=== PATIENT | male | born 1965 | race Caucasian/White ===

== ENCOUNTER 2022-02-20 11:48 | Outpatient (CLI) | payer OTHER, SELFPAY ==
--- NOTE | ~2022-02-20 | CT_ITS ---
EXAMINATION: CT lung screening DATE: 02/20/2022 12:37 INDICATION: Chest complaints. History of tobacco dependence. Lung cancer screening. TECHNIQUE: Computed tomography (CT) of the chest was performed without intravenous contrast. The dose -length product was 229.35 mGy-cm. Automated exposure control and iterative reconstruction technique were employed. COMPARISON: None FINDINGS: There is mild emphysema. No endobronchial lesions. No pneumothorax. Small hiatal hernia. Th ere is debris in the distal aspect of the esophagus, possibly reflux. No thoracic lymphadenopathy. Th ere is a 3 cm liver cyst. Otherwise, the upper abdomen is unremarkable. There is a 4 mm right upper l obe nodule, image 48. There is a 3 mm right upper lobe nodule, image 40. No peripheral airspace conso lidation. Mild thoracic spondylosis. No lytic or blastic lesions. IMPRESSION: 1. Lung-RADS category 2: Benign appearance or behavior. Continue annual screening with noncontrast lo w-dose chest CT in 12 months. Reviewed, dictated and finalized at location B. IMPRESSION: 1. Lung-RADS category 2: Benign appearance or behavior. Continue annual screeni ng with noncontrast low-dose chest CT in 12 months.
== END 2022-02-20 11:49 | disposition home or self-care (01) ==
DX: Z12.2 Encounter for screening for malignant neoplasm of respiratory organs (principal); Z87.891 Personal history of nicotine dependence
CPT/HCPCS: 71271

== ENCOUNTER 2022-08-29 09:05 | Outpatient (CLI) | payer OTHER, SELFPAY ==
--- NOTE | ~2022-08-29 | MR_ITS ---
EXAMINATION: MR knee RT wo con DATE: 08/29/2022 09:53 INDICATION: Chronic anterior right knee pain TECHNIQUE: Magnetic resonance imaging (MRI) of the right knee was performed without intravenous contr ast. Sequences included axial PD-weighted FS FSE, coronal PD-weighted FSE and PD-weighted FS FSE, sag ittal PD-weighted FSE, and sagittal T2-weighted FS FSE. COMPARISON: None. FINDINGS: Medial compartment: Oblique undersurface tear of the posterior horn and body. Mild diffuse cartilage loss. Mild osteophyt osis. Lateral compartment: Intact meniscus. Mild diffuse cartilage loss. Mild osteophytosis. Patellofemoral compartment: Mild diffuse cartilage thinning. Likely full-thickness cartilage fissure along the lateral facet with a subjacent subchondral cyst. Retinacula intact. Ligaments and tendons: ACL, PCL, MCL, and LCL are intact. The remaining flexor and extensor tendons are intact. Fluid: No effusion. Osseous/other: No suspicious focal or diffuse marrow signal. IMPRESSION: 1. Oblique undersurface tear of the body/posterior horn, medial meniscus. 2. Mild tricompartmental osteoarthritic change. Reviewed, dictated and finalized at location K.
== END 2022-08-29 09:06 | disposition home or self-care (01) ==
PROVIDERS: PCP Orthopaedic Surgery
DX: M25.561 Pain in right knee (principal); S83.241A Other tear of medial meniscus, current injury, right knee, initial encounter; M17.11 Unilateral primary osteoarthritis, right knee
CPT/HCPCS: 73721

== ENCOUNTER 2022-09-12 09:04 | Outpatient (CLI) | payer OTHER, SELFPAY ==
--- NOTE | ~2022-09-12 | MR_ITS ---
EXAMINATION: MR knee LT wo con DATE: 09/12/2022 09:57 INDICATION: Chronic left knee pain TECHNIQUE: Magnetic resonance imaging (MRI) of the left knee was performed without intravenous contra st. Sequences included coronal PD-weighted FSE, coronal PD-weighted FS FSE, sagittal T2-weighted FSE , sagittal PD-weighted FS FSE and axial PD weighted fat saturated FSE. COMPARISON: None. FINDINGS: Medial compartment: Complex tear involving the body and posterior horn of the medial meniscus. Mild partial-thickness car tilage loss with smooth chondral surface and without degenerative subchondral changes along the media l tibial plateau and weightbearing medial femoral condyle. Lateral compartment: Lateral meniscus is normal. Articular cartilage is normal. Patellofemoral compartment: Small regions of partial-thickness chondral fissuring without degenerative subchondral changes at the medial patellar facet and with minimal underlying cortical irregularity and edema-like signal change at the superolateral aspect of the lateral patellar facet. Trochlear cartilage is normal. Ligaments and tendons: Anterior and posterior cruciate ligaments are normal. The medial collateral ligament and fibular shelli ateral ligament complex are normal. Small enthesophytes and mild tendinopathy at the distal quadricep s tendon. Patellar tendon is normal. The visualized medial and lateral hamstring tendons as well as t he iliotibial band are normal. Fluid: Physiologic amount of fluid in the joint space. No loose osteochondral bodies identified. Osseous/other: No fracture or pathologic marrow replacing process. IMPRESSION: 1. Complex medial meniscal tear. 2. Mild osteoarthritis in the medial and patellofemoral compartments. 3. Mild distal quadriceps tendinopathy. Reviewed, dictated and finalized at location A.
== END 2022-09-12 09:05 | disposition home or self-care (01) ==
DX: M25.562 Pain in left knee (principal); M25.561 Pain in right knee; S83.232A Complex tear of medial meniscus, current injury, left knee, initial encounter; M17.12 Unilateral primary osteoarthritis, left knee; S76.112A Strain of left quadriceps muscle, fascia and tendon, initial encounter
CPT/HCPCS: 73721

== ENCOUNTER 2023-10-15 08:55 | Outpatient (CLI) | payer OTHER, SELFPAY ==
--- NOTE | ~2023-10-15 | CT_ITS ---
CT Scan of the Chest without Contrast: Clinical Indication: Lung cancer screening, nicotine dependence Technique: Contiguous sections were acquired throughout the chest without intravenous contrast. Dose reduction technique was used on this scan by utilizing automated exposure control and iterative recon struction technique. The dose-length product (DLP) was 195.30 mGy-cm. COMPARISON: 02/20/2022 Findings: There is no evidence of any significant mediastinal, hilar or axillary lymphadenopathy. The mediastin al soft tissues appear normal. There is no evidence of pleural or pericardial effusion. 4 mm right upper lobe pulmonary nodule present, unchanged (axial image 44). Images through the upper abdomen reveal no abnormalities. Impression: Lung RADS 2: Benign appearance. 12 month follow-up screening CT advised. Reviewed, dictated and finalized at location . Impression: Lung RADS 2: Benign appearance. 12 month follow-up screening CT advised.
== END 2023-10-15 08:56 | disposition home or self-care (01) ==
LOC: CHSIMG 08:57
DX: Z12.2 Encounter for screening for malignant neoplasm of respiratory organs (principal); Z87.891 Personal history of nicotine dependence
CPT/HCPCS: 71271

== ENCOUNTER 2024-05-01 07:24 | Outpatient (CLI) | payer OTHER, SELFPAY ==
--- NOTE | ~2024-05-01 | US_ITS ---
EXAMINATION: US carotid duplex BI DATE: 05/01/2024 08:17 INDICATION: Occlusion and stenosis of the bilateral carotid arteries TECHNIQUE: Grayscale, color Doppler, and pulsed Doppler images of the cervical carotid arteries were obtained. The degree of vessel stenosis is placed in one of the following categories: normal, <50%, 5 0-69%, >=70% but less than near-occlusion, near-occlusion, or total occlusion. Note that percent sten osis relative to normal distal artery lumen diameter is indirectly measured from velocity measurement s as described by Kenny, et al. Radiology 2003; 229:340-346. COMPARISON: None. FINDINGS: RIGHT: The right common carotid artery (CCA) peak systolic velocity (PSV) is 118 cm/s. The right internal ca rotid artery (ICA) PSV is 80 cm/s. The right ICA end-diastolic velocity (EDV) is 37 cm/s. The right I CA/CCA PSV ratio is 0.7. Grayscale and color Doppler images yield an estimate of <50% diameter reduct ion from plaque in the ICA. The external carotid artery (ECA) PSV is 87 cm/s. There is antegrade flow in the right vertebral artery. LEFT: The left CCA PSV is 76 cm/s. The left ICA PSV is 97 cm/s. The left ICA EDV is 43 cm/s. The left ICA/C CA PSV ratio is 1.3. Grayscale and color Doppler images yield an estimate of <50% diameter reduction from plaque in the ICA. The ECA PSV is 48 cm/s. There is antegrade flow in the left vertebral artery. IMPRESSION: 1. <50% stenosis in the right internal carotid artery. 2. <50% stenosis in the left internal carotid artery. Reviewed, dictated and finalized at location A. POT MAN
--- NOTE | ~2024-05-01 | US_ITS ---
Abdominal Sonogram: Real-time sonographic imaging of the abdomen was performed. Clinical History: Abdominal bulge Findings: The liver appears normal with no evidence of solid mass lesion or bile duct dilatation. Ma in portal vein demonstrates normal direction of flow. Hepatic cysts are present, largest measuring 3 cm in diameter. The spleen is normal in size without evidence of focal lesion. The gallbladder is we ll distended, and appears normal with no evidence of gallstone or wall thickening. The common bile du ct measures 3 mm. The visualized pancreas, aorta, and IVC are unremarkable. The right kidney measur es 11.2 cm in length and the left kidney measures 11.0 cm. There is no hydronephrosis or renal calcu ike. Impression: No significant abnormality. Reviewed, dictated and finalized at [facility]. ENGRAVER Impression: No significant abnormality.
== END 2024-05-01 07:25 | disposition home or self-care (01) ==
DX: I65.23 Occlusion and stenosis of bilateral carotid arteries (principal); R14.0 Abdominal distension (gaseous)
CPT/HCPCS: 76700; 93880

== ENCOUNTER 2024-06-16 08:35 | Outpatient (CLI) | payer OTHER, SELFPAY ==
--- NOTE | ~2024-06-16 | CT_ITS ---
EXAMINATION: CT soft tissue neck wo/w con DATE: 06/16/2024 09:16 INDICATION: Right clavicular mass. Dysphagia. TECHNIQUE: Computed tomography (CT) of the neck was performed without and with 75 mL Omnipaque-350 in travenous contrast. Automated exposure control and iterative reconstruction technique were employed. The dose-length product was 1025.32 mGy-cm. COMPARISON: Chest CT 10/15/2023 FINDINGS: There is mild emphysema. There is mucosal thickening in the paranasal sinuses. There is jossy que in the proximal internal carotid arteries with less than 50% stenosis relative to normal distal a rtery lumen diameters. There is a 1.3 x 1.1 cm submandibular lymph node at the midline. There is a 2. 0 x 1.6 cm right supraclavicular node. There is extensive dental disease. There is severe cervical sp ondylosis. 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 IMPRESSION: 1. Cervical lymphadenopathy suspicious for metastatic disease. Ultrasound-guided core needle biopsy o f a right supraclavicular lymph node is recommended. 2. Extensive dental disease. Reviewed, dictated and finalized at location B. BOARD PANEL PRINTER IMPRESSION: 1. Cervical lymphadenopathy suspicious for metastatic disease. Ultrasound-guide d core needle biopsy of a right supraclavicular lymph node is recommended. 2. Extensive dental disease.
== END 2024-06-16 08:36 | disposition home or self-care (01) ==
LOC: CHSIMG 08:39
DX: R59.0 Localized enlarged lymph nodes (principal); K08.9 Disorder of teeth and supporting structures, unspecified
CPT/HCPCS: 70492; Q9967

== ENCOUNTER 2024-10-23 12:42 | Outpatient (CLI) | payer OTHER, SELFPAY ==
--- NOTE | ~2024-10-23 | CT_ITS ---
EXAMINATION: CT lung screening DATE: 10/23/2024 13:02 INDICATION: Personal history of nicotine dependence TECHNIQUE: Computed tomography (CT) of the chest was performed without intravenous contrast. The dose -length product was 118.71 mGy-cm. Automated exposure control and iterative reconstruction technique were employed. COMPARISON: CT dated 10/15/2023 FINDINGS: Stable appearance of low-density mass of the liver, consistent with a cyst. No significant pleural or pericardial effusion. No thoracic lymphadenopathy. Small hiatal hernia. There is atheroscl erosis of the aorta and coronary arteries.No endobronchial lesions. Mild emphysema. Stable right uppe r lobe 4 mm nodule. No endobronchial lesions. No pneumothorax. Pulmonary nodules or masses. Mild thoracic spondylosis. IMPRESSION: 1. Lung-RADS category 2: Benign appearance or behavior. Continue annual screening with noncontrast lo w-dose chest CT in 12 months. Reviewed, dictated and finalized at location A. IMPRESSION: 1. Lung-RADS category 2: Benign appearance or behavior. Continue annual screeni ng with noncontrast low-dose chest CT in 12 months.
== END 2024-10-23 12:43 | disposition home or self-care (01) ==
LOC: CHSIMG 12:46
DX: Z12.2 Encounter for screening for malignant neoplasm of respiratory organs (principal); Z98.890 Other specified postprocedural states
CPT/HCPCS: 71271

== ENCOUNTER 2025-04-02 13:25 | Outpatient (CLI) | payer OTHER, SELFPAY ==
--- NOTE | ~2025-04-02 | CT_ITS ---
EXAM/PROCEDURE: CT soft tissue neck wo con HISTORY: FU ON RT SUPRACLAVICULAR ENLARDED LYMPHNODES COMPARISON: June 16, 2024 TECHNIQUE: Noncontrast soft tissue neck CT performed. FINDINGS: Extensive lymphadenopathy again noted with right supraclavicular lymph node measuring 2.5 cm, compared to 2.1 cm on the previous exam. Compare image 31 series 6 oh on coronal images on today's exam to image 54 of the coronal series on the previous exam.. A submental lymph node measures 1.5 cm in the transverse dimension compared to 1.2 cm on the previous exam. Compare image 71 of series 3 on today's exam to image 61 series 7 on the previous exam. Other smaller but mildly pathologic size bilateral jugulodigastric and supraclavicular lymph nodes. Smaller nonpathologic size posterior triangle and occipital lymph nodes also present. Periodontal and paranasal sinus disease again noted. IMPRESSION: Directed noncontrast exam again demonstrating lymphadenopathy, increasing in size concerning for lymphoproliferative process or malignant disease. Reviewed, dictated and finalized at location A. ASSISTANT IMPRESSION: Directed noncontrast exam again demonstrating lymphadenopathy, increasing in si ze concerning for lymphoproliferative process or malignant disease.
--- OUTSIDE RECORDS SUMMARY | 2025-04-02 13:41 | XMS_ITS | Clinical Summary ---
Author Organization [facility] Address [address] [place] [address] Care Team Providers Care Ground Hand Name Role Phone None, Provider MD Primary Care Provider Unavaila ble Allergies Active Allergy Reactions Criticality Noted Date Comments Amlodipine Swelling 10/04/2023 Food Anaphylaxis High 10/11/2023 Raisins Medications sildenafil (VIAGRA) 100 MG tablet Take 1 tablet (100 mg total) by mouth daily as needed for Erectile Dysfunction. Active atorvastatin (LIPITOR) 40 MG tablet Take 1.5 tablets (60 mg total) by mouth nightly at bedtime. Active vitamin D3, cholecalciferol , 1000 UNIT Tab tablet Take 2 tablets (50 mcg total) by mouth daily. Active DULoxetine (CYMBALTA) 60 MG capsule Take 1 capsule (60 mg total) by mouth daily. Active Active Problems Problem Noted Date Diagnosed Date Quadriceps tendonitis 07/21/2024 Tear of medial meniscus of left knee, initial en counter 07/21/2024 History of arthroscopy of right knee 07/21/2024 Chronic pain of right knee 07/21/2024 Complex tear of medial menis cus of right knee as current injury, initial encounter 09/17/2023 Social History Tobacco Use Types Packs/Day Years Used Date Smoking Tobacco: Every Day Cigarettes 1 40 Smokeless Tobacco: Never Tobacco Cessation:Ready to Q uit: Not Asked; Counseling Given: Not Answered Alcohol Use Standard Drinks/Week Comments Never 0 (1 standard drink = 0.6 oz pur e alcohol) Sex and Gender Information Value Date Recorded Sex Assigned at Male 07/21/2024 9:54 AM BUSINESS DEVELOPMENT AGENT Legal Sex Male 9:13 PM BUSINESS DEVELOPMENT AGENT Gender Identity Not on file Sexual Orientation Not on file Last Filed Vital Signs Vital Sign Reading Time Taken Comments Blood Pressure 112/76 03/27/2024 1:30 PM BUSINESS DEVELOPMENT AGENT Pulse 67 03/27/2024 1:45 PM BUSINESS DEVELOPMENT AGENT Temperature 36.9 C (98.4 F) 03/27/2024 11:01 AM BUSINESS DEVELOPMENT AGENT Respiratory Rate 16 03/27/2024 1:45 PM BUSINESS DEVELOPMENT AGENT Oxygen Saturation 95% 03/27/2024 1:45 PM BUSINESS DEVELOPMENT AGENT Inhaled Oxygen Concentration - - Weight 108 kg (238 lb) 08/14/2024 12:04 PM CDT Height 188 cm (6' 2) 08/14/2024 12:04 PM CDT Body Mass Index 30.56 08/14/2024 12:04 PM CDT Plan of Treatment Upcoming Encounters Date Type Department Care Team (Late st Contact Info) Description 04/11/2025 Orders Only [address] [address] Giancarlo Wlels, DO [address] [place] [id number] 04/11/2025 3:30 PM BUSINESS DEVELOPMENT AGENT Office Visit [address] [address] Giancarlo Wells, DO [facility] [place] [address] Health Maintenance Due Date Last Done Comments Colorectal Cancer Screening Colonoscopy (10 Years) 1967 Annual Physical 1970 Hepatitis C 1985 Hepatitis B Vaccines (1 of 3 - 19+ 3-dose series) 1986 Pneumococcal Vaccine: 50+ Ye ars (1 of 2 - PCV) 1986 Lung Cancer Screening 2017 Zoster Vaccines (1 of 2) 2017 DTaP, Tdap and Td Vaccines ( 1 - Tdap) 08/28/2023 08/27/2023 COVID-19 Vaccine ( - 2024-2 6 season) 2025 Influenza Adult (#1) 2025 Hepatitis A Vaccines Aged Out No long er eligible based on patient's age to complete this topic Meningococcal B Vaccine Aged Out No l onger eligible based on patient's age to complete this topic Meningococcal Vaccine Aged Out No zonia last eligible based on patient's age to complete this topic RSV Immunizations Under 20 Months Aged Out No longer eligible based on patient's age to complete this topic Insurance [id number]-[facility] OFFICE OF [facility] Care Teams Ground Hand Relationship Specialty Start Date End Date None, Provider, PCP - General 11/14/21
== END 2025-04-02 13:26 | disposition home or self-care (01) ==
LOC: CHSIMG 13:30
DX: R59.0 Localized enlarged lymph nodes (principal)
CPT/HCPCS: 70490